=== PATIENT | female | born 2000 | race Caucasian/White ===

== ENCOUNTER → 2023-04-24 | Outpatient (CLI) | payer OTHER, SELFPAY | LOC: M RAD 14:22 | PROVIDERS: ATTEND Advanced Practice Midwife | DX: Z36.3 Encounter for antenatal screening for malformations (principal); Z3A.20 20 weeks gestation of pregnancy ==

== ENCOUNTER 2023-08-10 18:54 | Outpatient (CLI) | payer OTHER ==
[~2023-08-10] VITALS: Ht 160 cm; Wt 75.2 kg
[2023-08-10] MEDS ORDERED: ACET325C5 PO (19:11)
[2023-08-10 19:13] VITALS: BP 169/97
[2023-08-10] MEDS ORDERED: HOME MED LIST COMPLETE! XX SCH (19:15)
[2023-08-10 19:28] VITALS: BP 149/92
[2023-08-10 19:43] VITALS: BP 159/97
[2023-08-10 19:58] VITALS: BP 152/94
[2023-08-10 19:59] LABS: HEMATOCRIT 30.5 % (36.0-47.0); HEMOGLOBIN 10.6 g/dl (12.0-15.5); MEAN CORPUSCULAR HEMOGLOBIN 29.7 pg (27.0-33.0); MEAN CORPUSCULAR HGB CONC 34.8 g/dl (32.0-36.5); MEAN CORPUSCULAR VOLUME 85.4 fl (80.0-96.0); PLATELET COUNT, AUTOMATED 191 10^3/uL (150-450); RED BLOOD COUNT 3.57 10^6/uL (4.00-5.40); WHITE BLOOD COUNT 10.1 10^3/uL (4.0-10.0)
[2023-08-10 20:15] LABS: TOTAL PROTEIN,RANDOM URINE 8.1 MG/DL (0.0-14.0)
[2023-08-10 20:19] LABS: CREATININE,RANDOM URINE 25.2 MG/DL
[2023-08-10 20:20] LABS: ALT/SGPT 38 U/L (7.0-40); AST/SGOT 29 U/L (<34); BILIRUBIN,TOTAL 0.3 MG/DL (0.3-1.2); CREATININE FOR GFR 0.52 MG/DL (0.55-1.30); GLOMERULAR FILTRATION RATE > 60.0 (>60); LDH LACTATE DEHYDROGENASE 198 U/L (120-246)
[2023-08-10 20:25] VITALS: BP 152/94
[2023-08-10 20:46] VITALS: BP 134/86
[2023-08-10] MEDS ORDERED: diphenhydrAMINE 25MG CAP PO ONE (21:00)
[2023-08-10] MEDS ORDERED: METOCLOPRAMIDE 10MG TAB PO ONE (21:00)
[2023-08-10] MEDS ORDERED: LABETALOL 200 MG TAB PO ONE (21:00)
== END 2023-08-10 21:04 | disposition home or self-care (01) ==
LOC: M LDO 18:54
PROVIDERS: ATTEND Obstetrics & Gynecology
DX: O14.03 Mild to moderate pre-eclampsia, third trimester (principal); Z3A.36 36 weeks gestation of pregnancy; Z88.1 Allergy status to other antibiotic agents; Z88.8 Allergy status to other drugs, medicaments and biological substances
CPT/HCPCS: 36415; 59025; 76815; 82247; 82570; 83615; 84156; 84450; 84460; 84550; 85027; G0463

== ENCOUNTER 2023-08-16 03:42 | Outpatient (CLI) | payer OTHER ==
[~2023-08-16] VITALS: Ht 160 cm; Wt 73.0 kg
[~2023-08-16 03:42] MED LIST: ACET325C5 PO
[2023-08-16 03:55] VITALS: BP 138/94
[2023-08-16] MEDS ORDERED: LABE200T5 PO (03:57)
[2023-08-16] MEDS ORDERED: PRENTAB9 PO (03:57)
[2023-08-16 04:16] VITALS: BP 150/90
[2023-08-16 04:25] VITALS: BP 146/93
[2023-08-16] MEDS ORDERED: METOCLOPRAMIDE 10MG TAB PO ONE (04:55)
[2023-08-16] MEDS ORDERED: diphenhydrAMINE 25MG CAP PO ONE (04:55)
[2023-08-16] MEDS ORDERED: METOCLOPRAMIDE INJ 10MG/2ML VIAL IV ONE (05:20)
[2023-08-16] MEDS ORDERED: diphenhydrAMINE 50MG/ML VIAL IV ONE (05:20)
[2023-08-16 05:27] VITALS: BP 132/85
[2023-08-16 06:02] LABS: HEMATOCRIT 30.3 % (36.0-47.0); HEMOGLOBIN 10.6 g/dl (12.0-15.5); MEAN CORPUSCULAR HEMOGLOBIN 30.6 pg (27.0-33.0); MEAN CORPUSCULAR VOLUME 87.6 fl (80.0-96.0); PLATELET COUNT, AUTOMATED 182 10^3/uL (150-450); RED BLOOD COUNT 3.46 10^6/uL (4.00-5.40); WHITE BLOOD COUNT 10.5 10^3/uL (4.0-10.0)
[2023-08-16 06:22] LABS: ALBUMIN 2.6 G/DL (3.2-5.2); ALKALINE PHOSPHATASE 162 U/L (46-116); ALT/SGPT 38 U/L (7.0-40); AST/SGOT 27 U/L (<34); BILIRUBIN,TOTAL 0.4 MG/DL (0.3-1.2); BLOOD UREA NITROGEN 8 MG/DL (9-23); CALCIUM LEVEL 8.4 MG/DL (8.5-10.1); CARBON DIOXIDE LEVEL 23 MMOL/L (20-31); CHLORIDE LEVEL 107 MMOL/L (98-107); CREATININE FOR GFR 0.56 MG/DL (0.55-1.30); GLOMERULAR FILTRATION RATE > 60.0 (>60); GLUCOSE, FASTING 79 MG/DL (60-100); POTASSIUM SERUM 3.4 MMOL/L (3.5-5.1); SODIUM LEVEL 139 MMOL/L (136-145); TOTAL PROTEIN 5.8 G/DL (5.7-8.2)
== END 2023-08-16 06:50 | disposition home or self-care (01) ==
LOC: M LDO 03:42
PROVIDERS: ATTEND Obstetrics & Gynecology
DX: O14.03 Mild to moderate pre-eclampsia, third trimester (principal); Z3A.36 36 weeks gestation of pregnancy; Z88.8 Allergy status to other drugs, medicaments and biological substances; Z88.1 Allergy status to other antibiotic agents
CPT/HCPCS: 59025; 76815; 80053; 85027; 96374; 96375; G0463; J1200; J2765

== ENCOUNTER 2023-08-19 14:40 | Inpatient (IN) | payer OTHER ==
[~2023-08-19] VITALS: Ht 160 cm; Wt 73.3 kg
[2023-08-19] VITALS (21 sets, daily range): BP systolic 125–180; BP diastolic 66–104; O2SAT 20–99
[~2023-08-19 14:40] MED LIST changes: +LABE200T5 PO; +PRENTAB9 PO
[2023-08-19] MEDS ORDERED: LACTATED RINGER'S 1000 ML IV STA (14:52)
[2023-08-19] MEDS ORDERED: CARBOPROST TROMETHAMINE 250 MCG/ML AMP IM PRN (14:55)
[2023-08-19] MEDS ORDERED: TRANEXAMIC ACID INJection 1,000 MG in NS 100 ML IV PRN (14:55)
[2023-08-19] MEDS ORDERED: METHYLERGONOVINE MALEATE 0.2MG/ML 1ML VIAL IM PRN (14:55)
[2023-08-19] MEDS ORDERED: OXYTOCIN INJ 10UNITS/ML 1ML VIAL IV PRN (14:55)
[2023-08-19] MEDS ORDERED: OXYTOCIN DRIP 30 UNITS in IV 1 EA IV SCH (14:55)
[2023-08-19] MEDS ORDERED: OXYTOCIN DRIP 30 UNITS in IV 1 EA IV PRN ×6 (14:55)
[2023-08-19] MEDS ORDERED: OXYTOCIN INJ 10UNITS/ML 1ML VIAL IM PRN (14:55)
[2023-08-19] MEDS ORDERED: LIDOCAINE 1% MDV 20ML VIAL INFIL PRN (14:55)
[2023-08-19] MEDS ORDERED: BENA25CA4 PO (15:01)
[2023-08-19] MEDS ORDERED: REGL5TAB2 PO (15:02)
[2023-08-19] MEDS ORDERED: HOME MED LIST COMPLETE! XX SCH (15:05)
[2023-08-19] MEDS ORDERED: PENICILLIN G POTASSIUM 5 MU IV 5 MU in D5W MINI-BAG PLUS 100 ML IV STA (15:43)
[2023-08-19] MEDS ORDERED: diphenhydrAMINE 50MG/ML VIAL IV PRN (15:50)
[2023-08-19 16:01] LABS: HEMATOCRIT 28.8 % (36.0-47.0); HEMOGLOBIN 10.1 g/dl (12.0-15.5); MEAN CORPUSCULAR HEMOGLOBIN 30.7 pg (27.0-33.0); MEAN CORPUSCULAR HGB CONC 35.1 g/dl (32.0-36.5); MEAN CORPUSCULAR VOLUME 87.5 fl (80.0-96.0); PLATELET COUNT, AUTOMATED 173 10^3/uL (150-450); RED BLOOD COUNT 3.29 10^6/uL (4.00-5.40); WHITE BLOOD COUNT 8.8 10^3/uL (4.0-10.0)
[2023-08-19] MEDS: LABETALOL 200 MG TAB PO SCH (16:06)
[2023-08-19] MEDS: LR 1,000 ML IV SCH ×2 (16:11→22:55)
[2023-08-19 16:16] LABS: ALBUMIN 2.6 G/DL (3.2-5.2); ALKALINE PHOSPHATASE 166 U/L (46-116); ALT/SGPT 36 U/L (7.0-40); AST/SGOT 26 U/L (<34); BILIRUBIN,TOTAL 0.3 MG/DL (0.3-1.2); BLOOD UREA NITROGEN 7 MG/DL (9-23); CALCIUM LEVEL 8.3 MG/DL (8.5-10.1); CARBON DIOXIDE LEVEL 22 MMOL/L (20-31); CHLORIDE LEVEL 108 MMOL/L (98-107); CREATININE FOR GFR 0.57 MG/DL (0.55-1.30); GLOMERULAR FILTRATION RATE > 60.0 (>60); GLUCOSE, FASTING 100 MG/DL (60-100); POTASSIUM SERUM 3.3 MMOL/L (3.5-5.1); SODIUM LEVEL 139 MMOL/L (136-145); TOTAL PROTEIN 5.7 G/DL (5.7-8.2)
[2023-08-19] MEDS: miSOPROStol 50MCG 1/2 TABLET PO PRN ×2 (16:20→20:43)
[2023-08-19 16:38] LABS: TOTAL PROTEIN,RANDOM URINE 39.4 MG/DL (0.0-14.0)
[2023-08-19 16:43] LABS: CREATININE,RANDOM URINE 149.3 MG/DL
[2023-08-19] MEDS ORDERED: hydrALAZINE 20MG/ML 1ML VIAL IV STA (17:27)
[2023-08-19] MEDS ORDERED: CALCIUM GLUCONATE 1,000 MG in D5W MINI-BAG PLUS 100 ML IV PRN (17:40)
[2023-08-19] MEDS ORDERED: MAG Sulf (L&D) 4 GM/100 ML 4 GM in IV 1 EA IV ONE (18:00)
[2023-08-19] MEDS: MAG Sulf (OBGYN) 20GM/500ML 20,000 MG in IV 1 EA IV SCH (18:18)
[2023-08-19] MEDS ORDERED: PEN G POT 3,000,000 UNIT/50 ML 3,000,000 UNIT in IV 1 EA IV SCH (19:45)
[2023-08-19] MEDS ORDERED: **PENDING PCN ENTRY XX SCH (21:00)
[2023-08-19] MEDS: ACETAMINOPHEN 500 MG TAB PO PRN (22:44)
[2023-08-20] VITALS (46 sets, daily range): BP systolic 112–162; BP diastolic 59–99; O2SAT 99–100
[2023-08-20] MEDS: LR 1,000 ML IV SCH ×3 (00:22→15:58)
[2023-08-20] MEDS: LABETALOL 200 MG TAB PO SCH (01:12)
[2023-08-20] MEDS: miSOPROStol 50MCG 1/2 TABLET PO PRN ×3 (02:32→11:49)
[2023-08-20] MEDS: MAG Sulf (OBGYN) 20GM/500ML 20,000 MG in IV 1 EA IV SCH ×2 (04:25→14:24)
[2023-08-20] MEDS: ACETAMINOPHEN 500 MG TAB PO PRN (04:37)
[2023-08-20] MEDS ORDERED: CALCIUM CARBONATE 500 MG CHEW U/D PO ONE (05:00)
[2023-08-20] MEDS ORDERED: CALCIUM CARBONATE 500 MG CHEW U/D PO PRN (06:05)
[2023-08-20] MEDS ORDERED: NIFEdipine 30MG XL TAB PO STA (08:23)
[2023-08-20] MEDS ORDERED: NALBUPHINE HCL 1MG/0.1ML (100MG/10ML) MDV IV PRN (09:25)
[2023-08-20] MEDS ORDERED: PROMETHAZINE 25MG/ML 1ML VIAL IV PRN (09:25)
[2023-08-20] MEDS ORDERED: PENICILLIN G POTASSIUM 5 MU IV 5 MU in D5W MINI-BAG PLUS 100 ML IV STA (15:16)
[2023-08-20] MEDS: NIFEdipine 30MG XL TAB PO SCH (20:56)
[2023-08-20] MEDS: PEN G POT 3,000,000 UNIT/50 ML 3,000,000 UNIT in IV 1 EA IV SCH (20:56)
[2023-08-20] MEDS ORDERED: ONDANSETRON 4MG 2ML VIAL IV PRN ×2 (21:25)
[2023-08-20] MEDS ORDERED: LR 500 ML IV PRN (21:25)
[2023-08-20] MEDS ORDERED: NALOXONE INJ 0.4MG/1ML VIAL IV PRN (21:25)
[2023-08-20] MEDS ORDERED: ePHEDrine SULFATE 25 MG/5 ML(5MG/ML) SYRINGE IVP PRN (21:25)
[2023-08-20] MEDS ORDERED: diphenhydrAMINE 50MG/ML VIAL IV PRN (21:25)
[2023-08-20] MEDS ORDERED: EPIDURAL/PCA KEYS XX PRN (21:25)
[2023-08-20] MEDS: FENTANYL/ROPIVACAINE/NACL BAG 100 ML EPIDURAL SCH (22:08)
[2023-08-21] VITALS (38 sets, daily range): BP systolic 117–164; BP diastolic 58–105; O2SAT 95–99
[2023-08-21] MEDS: PEN G POT 3,000,000 UNIT/50 ML 3,000,000 UNIT in IV 1 EA IV SCH ×2 (00:19→04:10)
[2023-08-21] MEDS: MAG Sulf (OBGYN) 20GM/500ML 20,000 MG in IV 1 EA IV SCH ×3 (00:20→20:27)
[2023-08-21] MEDS: LR 1,000 ML IV SCH ×3 (04:10→20:26)
[2023-08-21] MEDS: FENTANYL/ROPIVACAINE/NACL BAG 100 ML EPIDURAL SCH (04:28)
[2023-08-21] MEDS ORDERED: diphenhydrAMINE 50MG/ML VIAL IV ONE (05:00)
[2023-08-21 07:17] LABS: CORD GAS ABE A -4.4; CORD GAS ABE V -4.9; CORD GAS HCO3 A 22.4 MMOL/L; CORD GAS HCO3 V 21.4 MMOL/L; CORD GAS O2 SAT A 64.6 %; CORD GAS O2 SAT V 74.5 %; CORD GAS PCO2 A 47.4 mmHg; CORD GAS PCO2 V 44.1 mmHg; CORD GAS PH A 7.292 UNITS; CORD GAS PH V 7.304 UNITS; CORD GAS PO2 A 29.1 mmHg; CORD GAS PO2 V 33.5 mmHg; CORD GAS SBC A 20.1 MMOL/L; CORD GAS SBC V 19.9 MMOL/L; CORD GAS TCO2 A 23.8 MMOL/L; CORD GAS TCO2 V 22.8 MMOL/L
[2023-08-21] MEDS ORDERED: ACETAMINOPHEN 500 MG TAB PO PRN (07:20)
[2023-08-21] MEDS ORDERED: MOM 30ML SUSPENSION UDC PO PRN (07:20)
[2023-08-21] MEDS ORDERED: DIBUCAINE 1% OINTMENT 30GM TOP PRN (07:20)
[2023-08-21] MEDS ORDERED: ACETAMINOPHEN TAB 650MG DOSE (2X325MG) PO PRN (07:20)
[2023-08-21] MEDS ORDERED: DOCUSATE SODIUM 100MG CAPSULE PO PRN (07:20)
[2023-08-21] MEDS ORDERED: OXYTOCIN DRIP 30 UNITS in IV 1 EA IV SCH ×4 (07:20)
[2023-08-21] MEDS ORDERED: RHOGAM 300MCG (1500IU) INJ IM SCH (07:20)
[2023-08-21] MEDS ORDERED: ONDANSETRON 4MG 2ML VIAL IV PRN (07:20)
[2023-08-21] MEDS ORDERED: IBUPROFEN 600MG TAB PO PRN (07:20)
[2023-08-21] MEDS ORDERED: METHYLERGONOVINE MALEATE 0.2 MG TAB PO PRN (07:20)
[2023-08-21] MEDS: NIFEdipine 30MG XL TAB PO SCH ×2 (08:04→21:16)
[2023-08-21] MEDS: PRENATAL VITAMINS CHEWABLE TABLET PO SCH (09:53)
[2023-08-21] MEDS: IBUPROFEN 800 MG TAB PO PRN ×2 (09:53→18:34)
[2023-08-21] MEDS: ACETAMINOPHEN 500 MG TAB PO PRN (16:11)
[2023-08-22] VITALS (12 sets, daily range): BP systolic 114–156; BP diastolic 61–90; TEMP 98.2; O2SAT 96–99
[2023-08-22] MEDS: MAG Sulf (OBGYN) 20GM/500ML 20,000 MG in IV 1 EA IV SCH (06:05)
[2023-08-22] MEDS: PRENATAL VITAMINS CHEWABLE TABLET PO SCH (09:28)
[2023-08-22] MEDS: NIFEdipine 30MG XL TAB PO SCH ×2 (09:29→18:24)
[2023-08-23 02:00] VITALS: BP 148/101; O2SAT 98
[2023-08-23 06:00] VITALS: BP 126/76; O2SAT 97
[2023-08-23] MEDS ORDERED: NIFEdipine 30MG XL TAB PO SCH (06:00)
[2023-08-23 06:02] VITALS: BP 126/76
[2023-08-23] MEDS: PRENATAL VITAMINS CHEWABLE TABLET PO SCH (08:17)
[2023-08-23] MEDS: IBUPROFEN 800 MG TAB PO PRN (08:17)
[2023-08-23 09:00] VITALS: BP 126/76; TEMP 98.6; O2SAT 97
[2023-08-23] MEDS ORDERED: MEASLES,MUMPS,RUBELLA VACCINE INJ (MMR-II) SC.IMMUN ONE (09:00)
[2023-08-23 10:00] VITALS: BP 139/84; O2SAT 98
[2023-08-23] MEDS ORDERED: ACET1TAB55 PO (10:47)
[2023-08-23] MEDS ORDERED: NIFE1TAB52 PO (10:47)
[2023-08-23] MEDS ORDERED: COLA100C5 PO (10:47)
[2023-08-23] MEDS ORDERED: IBUP-1022 PO (10:47)
== END 2023-08-23 12:00 | disposition home or self-care (01) | DRG 807 ==
LOC: M LDI 14:40 → M OBS 08-21 18:09
PROVIDERS: ADMIT Obstetrics & Gynecology; ATTEND Obstetrics & Gynecology
PROC: 3E0P7GC Introduction of Other Therapeutic Substance into Female Reproductive, Via Natural or Artificial Opening (ICD-10-PCS; 2023-08-19)
PROC: 10E0XZZ Delivery of Products of Conception, External Approach (ICD-10-PCS; principal; 2023-08-21)
PROC: 0KQM0ZZ Repair Perineum Muscle, Open Approach (ICD-10-PCS; 2023-08-21)
DX: O14.14 Severe pre-eclampsia complicating childbirth (principal); Z37.0 Single live birth; O99.824 Streptococcus B carrier state complicating childbirth; Z3A.37 37 weeks gestation of pregnancy; Z88.0 Allergy status to penicillin; Z88.8 Allergy status to other drugs, medicaments and biological substances; Z79.899 Other long term (current) drug therapy; O69.81X0 Labor and delivery complicated by cord around neck, without compression, not applicable or unspecified; O70.1 Second degree perineal laceration during delivery

== ENCOUNTER → 2023-10-02 | Outpatient (CLI) | payer OTHER ==
[~2023-10-02] MED LIST changes: +ACET1TAB55 PO; +BENA25CA4 PO; +COLA100C5 PO; +IBUP-1022 PO; +NIFE1TAB52 PO; +REGL5TAB2 PO
== END ==
LOC: M RAD 14:02
PROVIDERS: ATTEND Advanced Practice Midwife
DX: O72.2 Delayed and secondary postpartum hemorrhage (principal); Z3A.00 Weeks of gestation of pregnancy not specified